=== PATIENT | male | born 1990 | race Caucasian/White ===

== ENCOUNTER 2024-08-15 22:13 | Emergency (ER) | payer SELFPAY ==
[2024-08-15 22:17] VITALS: BP 180/108; PULSE 135; RESP 20; TEMP 36.6; O2SAT 97
--- NOTE | 2024-08-15 22:20 | ECG_ITS ---
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
--- NOTE | 2024-08-15 22:26 | XRR_ITS ---
PROCEDURE INFORMATION: Exam: XR Chest Exam date and time: 08/15/2024 10:50 PM Age: 34 years old Clinical indication: Chest pressure; C/O chest pain TECHNIQUE: Imaging protocol: Radiologic exam of the chest. Views: 1 view. COMPARISON: No relevant prior studies available. FINDINGS: Lungs: Unremarkable. No consolidation. Pleural spaces: Unremarkable. No pleural effusion. No pneumothorax. Heart/Mediastinum: Unremarkable. No cardiomegaly. Bones/joints: Unremarkable. XR/XR chest 1V portable [id number] IMPRESSION: No acute findings.
--- NOTE | 2024-08-15 23:24 | ED_ITS ---
HPI - Chest Pain 2 General: Chief Complaint: Chest Pain Stated Complaint: CP shooting into arm SOB Time Seen by Provider: 08/15/24 22:15 Source: patient Mode of arrival: ambulatory Limitations: no limitations History of Present Illness: Patient is a 34-year-old presents to ED today along with his significant other for two episodes of chest pain that began earlier today. He states the first episode occurred around 6 PM this evening while he was driving to [place] for dinner. He states symptoms lasted for several minutes before subsiding on their own. He states he continues to drive to [place] and eat and they were able to make it home before he had another episode of chest pain that began just prior to arrival. At time of my initial examination, patient is not actively having any chest pain. He arrives extremely hypertensive and tachycardic. He admittedly is nervous that he might of had a heart attack. Patient states he has a diagnosis of hypertension and diabetes, both of which he intentionally does not treat. He did not like the side effects of his diabetic medications. He does not routinely check his blood pressures or sugars at home. Patient denies shortness of breath or difficulty breathing. Denies exertional symptoms. Looking at previous documentation, it is documented that his father of an OK at the age of 34-patient states this was actualy 38. Patient is an everyday smoker. MD complaint: chest pain Onset (ago): hour(s) Timing of current episode: episodic Onset: during rest Pain location: substernal Pain radiation: left arm Relieving factors: nothing Exacerbating factors: nothing Associated symptoms: Deny abdominal pain, dyspnea, fever(s), palpitations or syncope Treatment prior to arrival: none Risk Factors: Coronary artery disease risk factors: diabetes, smoking history, hypertension and family history of CAD before age 50 Thoracic aortic dissection risk factors: none Related Data Previous Rx's ?Medication ?Instructions ?Recorded pantoprazole 40 mg tablet,delayed 40 mg PO DAILY #90 t abs 04/10/23 release metoprolol succinate 25 mg 25 mg PO BID #60 tabs 08/16 tablet,extended release 24 hr Allergies Allergy/AdvReac Type Severity Reaction Status Date / Time No Known Allergies Allergy Unverified 04/20/23 07:49 Review of Systems 2 Const: Denies: fever(s) Card: Reports: chest pain; Denies: palpitations, irregular heart rhythm, edema, swelling of feet/ankles, lightheadedness, syncope, pre-syncope, dyspnea on exertion, orthopnea, leg pain with exertion or acrocyanosis Resp: Denies: dyspnea or hemoptysis GI: Denies: abdominal pain Musc: Denies: neck pain, back pain, extremity pain or joint swelling Skin/Breast: Denies: rash Neuro: Denies: headache(s), numbness in extremities, weakness in extremities or sensory changes PFSH ED 2 PFSH: Family History Mother CAD (coronary artery disease) Diabetes Hypertension Father CAD (coronary artery disease) Denies family history of Clotting disorder Dementia Hyperlipidemia Psychiatric illness Chronic kidney disease (CKD) Suicide Anesthesia complication Bleeding disorder Family history of premature coronary artery disease Lung disease Cancer Stroke Social History Smoking and tobacco/nicotine status: current every day tobacco/nicotine user cigarettes Packs smoked per day: 1 Second hand smoke exposure: Yes Alcohol intake: current Alcohol intake frequency: holidays/special occasions only Substance/Drug Use: never Adopted: No Caregiver/support person: No Lives independently: Yes Household members: significant other Housing: House Marital status: Life Partner Number of children: 1 service: No Current occupational status: employed 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 Current occupational exposures/hazards: Yes Pets and animals: No Sexually active: Yes Do you think of yourself as: Straight/Heterosexual Current gender identity: Male Special irish needs: No Agree to transfusion: Yes Physical Exam 2 Const: COMMON NORMALS: no acute distress, patient oriented x3, no limitations, alert and well nourished GENERAL APPEARANCE: cooperative NUTRITIONAL APPEARANCE: obese HENMT: COMMON NORMALS: normocephalic and atraumatic HEAD & SCALP: normal to inspection, normocephalic and atraumatic Neck/C-Spine: COMMON NORMALS: full ROM, no lymphadenopathy, supple and no meningeal signs Chest: COMMONS NORMALS: normal inspection of the chest and normal palpation of entire chest wall Resp: COMMON NORMALS: normal respiratory effort and clear to auscultation bilaterally AUSCULTATION: clear to auscultation bilaterally Cardio: COMMON NORMALS: regular rhythm RATE: tachycardic RHYTHM: regular rhythm GI: COMMON NORMALS: Normal to inspection, nondistended, normoactive bowel sounds present, Soft to palpation, non-tender, No hepatosplenomegaly present and no masses PALPATION: Yes Soft to palpation and Yes No hepatosplenomegaly present : COMMON NORMALS: Yes no CVA tenderness BLADDER/KIDNEY EXAM: Yes no CVA tenderness Back/Pelvis: COMMON NORMALS: no CVA tenderness and thoracic and lumbar spine normal to inspection Extremity: COMMON NORMALS: normal to inspection and no calf tenderness G ENERAL: Yes normal exam except as noted Neuro: COMMON NORMALS: patient oriented x3, moves all extremities, no focal motor deficits and no sensory deficits noted SENSORIUM/ORIENTATION: Yes alert MENINGEAL SIGNS: Yes no meningeal signs Skin: COMMON NORMALS: no rashes or lesions noted GENERAL SKIN EXAM: no rashes or lesions noted Course 2 Vital Signs: Vital signs: Vital Signs Temperature 97.8 F 08/15/24 22:17 Pulse Rate 111 H 08/15/24 23:45 Respiratory Rate 14 08/15/24 23:45 Blood Pressure 163/106 08/15/24 23:39 Pulse Oximetry 97 08/15/24 23:45 Oxygen Delivery Me thod Room Air 08/15/24 22:17 MDM - Chest Pain Medical Decision Making Patient has not had any further episodes of chest pain while here. Patient has significant cardiac risk factors including untreated hypertension, diabetes, obesity, smoking, family history of cardiac disease at a young age. He has refused treatment for a lot of his chronic medical conditions up until this point. He is agreeable to start back on some blood pressure medications. He is also agreeable to follow-up with primary care for further options regarding diabetic medications as he did not like the side effects of his metformin and glipizide. Blood pressure did improve here and on reexamination was 150s/90s. His blood work shows a normal D-dimer and a normal baseline troponin. EKG showing sinus tachycardia without ischemic changes. He does not want to stay for a 2-hour repeat troponin/EKG. He does not want to stay in the hospital. He wants to go home. Patient given strict return precautions. Otherwise I will have him follow up with primary care. Medical Records I reviewed the patient's medical records. Lab Data I reviewed the patient's lab results. 08/15/24 23:08 08/15/24 23:08 Radiology Impressions Chest X-Ray 08/15/24 22:26 IMPRESSION: No acute findings. Laboratory Results WBC 9.08 10^3/uL (3.29-11.43) 08/15/24 23:08 RBC 5.22 10^6/uL (3.85-5.65) 08/15/24 23:08 Hgb 16.40 g/dL (11.27-16.99) 08/15/24 23:08 Hct 46.5 % (37-53) 08/15/24 23:08 MCV 89.1 fl (82-101) 08/15/24 23:08 MCH 31.4 pg (27-33) 08/15/24 23:08 MCHC 35.3 g/dL (30-55) 08/15/24 23:08 RDW 11.5 % (12.1-15.1) L 08/15/24 23:08 Plt Count 205 10^3/cmm (157-399) 08/15/24 23:08 MPV 9.7 fL (7.4-10.4) 08/15/24 23:08 Neut % (Auto) 51.3 % 08/15/24 23:08 Lymph % (Auto) 38.3 % 08/15/24 23:08 [place] % (Auto) 7.3 % 08/15/24 23:08 Eos % (Auto) 2.6 % 08/15/24 23:08 Baso % (Auto) 0.3 % 08/15/24 23:08 Neut # (Auto) 4.65 10^3/uL (1.8-7.7) 08/15/24 23:08 Lymph # (Auto) 3.5 10^3/uL (0.8-4.8) 08/15/24 23:08 [place] # (Auto) 0.7 10^3/uL (0.2-0.9) 08/15/24 23:08 Eos # (Auto) 0.2 10^3/uL (0.0-0.8) 08/15/24 23:08 Baso # (Auto) 0.0 10^3/uL (0.0-0.1) 08/15/24 23:08 Nucleated RBC % (auto) 0 % 08/15/24 23:08 Nucleated RBCs # 0.0 /100WBC 08/15/24 23:08 D-Dimer 0.36 ug/mLFEU (0-0.59) 08/15/24 23:08 Sodium 134 mmol/L (136-145) L 08/15/24 23:08 Potassium 4.2 mmol/L (3.5-5.1) 08/15/24 23:08 Chloride 95 mmol/L (98-107) L 08/15/24 23:08 Carbon Dioxide 22 mmol/L (22-29) 08/15/24 23:08 Anion Gap 21.2 (5-19) H 08/15/24 23:08 BUN 13 mg/dL (6-20) 08/15/24 23:08 Creatinine 1.1 mg/dL (0.7-1.2) 08/15/24 23:08 GFR Calculation 76.6 mL/min (90-130) L 08/15/24 23:08 Glucose 382 mg/dL (65-115) H 08/15/24 23:08 Calculated Osmolality 294 mOsm/kg (285-295) 08/15/24 23:08 Calcium 9.6 mg/dL (8.5-10.5) 08/15/24 23:08 Total Bilirubin 0.4 mg/dL (0.15-1.2) 08/15/24 23:08 AST 24 U/L (0-40) 08/15/24 23:08 ALT 43 U/L (0-41) H 08/15/24 23:08 Alkaline Phosphatase 124 U/L (40-130) 08/15/24 23:08 Troponin T Baseline < 6 ng/L (0-15) 08/15/24 23:08 Total Protein 7.0 g/dL (6.6-8.7) 08/15/24 23:08 Albumin 4.4 g/dL (3.5-5.2) 08/15/24 23:08 Globulin 2.6 g/dL (1.3-4.6) 08/15/24 23:08 All radiology interpretation(s) finalized by discharge Discharge Plan Discharge Patient Disposition: Home Clinical Impression: Chest pain Qualifiers: Chest pain type: unspecified Qualified Code(s): R07.9 - Chest pain, unspecified Hypertension Qualifiers: Hypertension type: unspecified Qualified Code(s): I10 - Essential (primary) hypertension Condition: Stable Prescriptions: New metoprolol succinate 25 mg tablet extended release 24 hr 25 mg PO BID Qty: 60 0RF No Action pantoprazole 40 mg tablet,delayed release (DR/EC) 40 mg PO DAILY Qty: 90 3RF Discharge Orders: Discharge ED (Routine); Ordered 08/16/24 Ordered By: Gerda Goel Referrals: Herman Rodríguez, [Primary Care Provider] - Patient Instructions: Chest Pain (DC) Activity Restrictions/Additional Instructions: As we discussed, you need to follow-up with primary care for further evaluation and treatment of a lot of your chronic conditions that you have opted not to treat up until this point. I recommend you keep a blood pressure log to follow- up with them so they can adjust these medications. You need to return to the emergency department for any further episodes of chest pain as you have significant cardiac risk factors. Print Language: Kiswahili Coding Level of Care Code ED Vegetable Picker for Rich Monroy
[2024-08-15 23:29] LABS: Basophils % 0.3 %; Eosinophils # 0.2 10^3/uL (0.0-0.8); Eosinophils % 2.6 %; Hematocrit 46.5 % (37-53); Lymphocytes # 3.5 10^3/uL (0.8-4.8); Lymphocytes % 38.3 %; Mean Corpuscular HGB Conc 35.3 g/dL (30-55); Mean Corpuscular Hemoglobin 31.4 pg (27-33); Mean Corpuscular Volume 89.1 fl (82-101); Mean Platelet Volume 9.7 fL (7.4-10.4); Monocytes # 0.7 10^3/uL (0.2-0.9); Monocytes % 7.3 %; Neutrophils # 4.65 10^3/uL (1.8-7.7); Neutrophils % 51.3 %; Nucleated Red Blood Cells % 0 %; Platelet Count 205 10^3/cmm (157-399); Red Blood Count 5.22 10^6/uL (3.85-5.65); Red Cell Distribution Width 11.5 % (12.1-15.1); White Blood Count 9.08 10^3/uL (3.29-11.43)
[2024-08-15] MEDS: metoprolol tartrate 25 mg Tablet PO (23:32)
[2024-08-15 23:39] VITALS: BP 163/106; PULSE 110; O2SAT 93
[2024-08-15 23:45] VITALS: PULSE 111; RESP 14; O2SAT 97
[2024-08-15 23:47] LABS: D Dimer 0.36 ug/mLFEU (0-0.59)
[2024-08-15 23:51] LABS: Troponin(5th) Baseline < 6 ng/L (0-15)
[2024-08-15 23:56] LABS: Alanine Aminotransferase 43 U/L (0-41); Albumin Level 4.4 g/dL (3.5-5.2); Alkaline Phosphatase 124 U/L (40-130); Blood Urea Nitrogen 13 mg/dL (6-20); Calcium 9.6 mg/dL (8.5-10.5); Carbon Dioxide 22 mmol/L (22-29); Chloride 95 mmol/L (98-107); Globulin 2.6 g/dL (1.3-4.6); Glomerular Filtration Rate 76.6 mL/min (90-130); Glucose 382 mg/dL (65-115); Osmolality Calculated 294 mOsm/kg (285-295); Sodium 134 mmol/L (136-145); Total Bilirubin 0.4 mg/dL (0.15-1.2)
[2024-08-16] VITALS: BP 159/105; PULSE 114; RESP 12; O2SAT 96
[2024-08-16 00:04] LABS: Anion Gap 21.2 (5-19); Aspartate Amino Transferase 24 U/L (0-40); Potassium 4.2 mmol/L (3.5-5.1)
[2024-08-16 00:15] VITALS: BP 155/96; PULSE 104; RESP 12; O2SAT 96
[2024-08-16 00:30] VITALS: BP 174/103; PULSE 106; O2SAT 93
[2024-08-16 00:45] VITALS: BP 171/104; PULSE 97; RESP 17; O2SAT 94
[2024-08-16 00:56] VITALS: BP 158/101; PULSE 97; RESP 16; O2SAT 94
--- NOTE | 2024-08-16 01:02 | PC.NURSE ---
CREDIT AND COLLECTIONS ANALYST notified of blood pressure. Orders received to discharge patient. Patient educated to follow up with his primary and to keep a blood pressure log. Patient verbalizes understanding of discharge.
--- NOTE | 2024-08-19 08:38 | DCPLANNER ---
Message sent to PCP for follow upPatient has not had any further episodes of chest pain while here. Patient has significant cardiac risk factors including untreated hypertension, diabetes, obesity, smoking, family history of cardiac disease at a young age. He has refused treatment for a lot of his chronic medical conditions up until this point. He is agreeable to start back on some blood pressure medications. He is also agreeable to follow-up with primary care for further options regarding diabetic medications as he did not like the side effects of his metformin and glipizide. Blood pressure did improve here and on reexamination was 150s/90s. His blood work shows a normal D-dimer and a normal baseline troponin. EKG showing sinus tachycardia without ischemic changes. He does not want to stay for a 2-hour repeat troponin/EKG. He does not want to stay in the hospital. He wants to go home. Patient given strict return precautions. Otherwise I will have him follow up with primary care.
== END 2024-08-16 01:02 | disposition home or self-care (01) ==
PROVIDERS: Emergency Provider Physician Assistant; PCP Family Medicine
DX: R07.9 Chest pain, unspecified (principal); I10 Essential (primary) hypertension; F17.210 Nicotine dependence, cigarettes, uncomplicated
CPT/HCPCS: 36415; 71045; 80053; 84484; 85025; 85378; 93005; 99285